=== PATIENT | male | born 1955 | race Asian ===

== ENCOUNTER 2018-09-27 07:01 | Day surgery (SDC) | payer OTHER ==
[2018-09-27] MEDS ORDERED: HEPARIN 1000 UNITS/ML 10 ML INJ (08:27)
[2018-09-27] MEDS ORDERED: MIDAZOLAM 1 MG/ML 2 ML INJ (08:27)
[2018-09-27] MEDS ORDERED: LIDOCAINE 1% (MDV) 20 ML INJ (08:27)
[2018-09-27] MEDS ORDERED: FENTAnyl 50 MCG/ML VIAL (08:27)
[2018-09-27] MEDS ORDERED: CEFAZOLIN 1 GM/50 ML (PMX) 50 ML IVPB (08:28)
[2018-09-27] MEDS ORDERED: LIDOCAINE 2%/EPI MPF (SDV) 20 ML VIAL (08:46)
[2018-09-27] MEDS ORDERED: LIDOCAINE 1%/EPI (1:100,000) (MDV) 20 ML (08:47)
== END 2018-09-27 12:17 | disposition home or self-care (01) ==
LOC: SDS 07:01
DX: C18.3 Malignant neoplasm of hepatic flexure (principal)
CPT/HCPCS: 36561; 76705

== ENCOUNTER 2018-10-07 07:04 | Day surgery (SDC) | payer OTHER ==
[2018-10-07] MEDS: SOD CHLORIDE 0.9% 1,000 ML IV ×2 (09:12→12:11)
[2018-10-07] MEDS: FENTAnyl 50 MCG/ML VIAL (10:55)
[2018-10-07] MEDS: IOHEXOL 300MG/ML 150 ML BTL (11:03)
[2018-10-07] MEDS: ACETAMINOPHEN 325 MG TAB PO (14:40)
== END 2018-10-07 14:50 | disposition home or self-care (01) ==
LOC: SDS 07:04
DX: C22.7 Other specified carcinomas of liver (principal); C18.9 Malignant neoplasm of colon, unspecified; I10 Essential (primary) hypertension
CPT/HCPCS: 47000; 77012; 88307; 88313

== ENCOUNTER 2018-10-21 06:39 | Day surgery (SDC) | payer OTHER ==
[2018-10-21] MEDS ORDERED: PROPOFOL 200 MG INJ (09:38)
[2018-10-21] MEDS ORDERED: LIDOCAINE 100 MG SYRINGE (09:38)
[2018-10-21] MEDS ORDERED: FENTAnyl 50 MCG/ML VIAL (09:38)
[2018-10-21] MEDS ORDERED: PROPOFOL 40 ML (09:38)
== END 2018-10-21 11:58 | disposition home or self-care (01) ==
LOC: GIL 06:39
DX: K64.8 Other hemorrhoids (principal); Z85.038 Personal history of other malignant neoplasm of large intestine; I10 Essential (primary) hypertension
CPT/HCPCS: 43235; 88305